=== PATIENT | male | born 1970 | race Caucasian/White ===

== ENCOUNTER 2018-10-12 09:42 | Emergency (ER) | payer MEDICAID ==
[~2018-10-12] VITALS: Ht 170.2 cm; Wt 103.1 kg
[~2018-10-12 09:42] MED LIST: ACET1TAB40 PO; DOCU-144 PO; GLYC1SUP92 PR; LISI10TA2 PO
[2018-10-12 10:02] VITALS: BP 180/95; PULSE 57; RESP 18; Ht 170.2 cm; Wt 103.1 kg
--- NOTE | 2018-10-12 10:31 | ERD ---
ER Documentation Chief Complaint Chief Complaint bilateral knee pain since yesterday HPI 48-year-old male, presents to the emergency department, complaining of bilateral knee pain that has been getting worse during the 3 days. 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 The pain is dull, constant, 8/10. He denies fevers, no chills, no rashes. No medications taken for pain. ROS All systems reviewed and are negative except as per history of present illness. Medications Home Meds Active Scripts Ibuprofen* (Motrin*) 600 Mg Tab, 600 MG PO Q8, #15 TAB Prov:MARY MILES MD 10/12/18 Hydrocodone/Acetaminophen ([place] 5-325 Tablet) 1 Each Tablet, 1 TAB PO BID PRN for PAIN, #10 TAB Prov:MARY MILES MD 10/12/18 Prednisone* (Prednisone*) 20 Mg Tab, 60 MG PO DAILY for 5 Days, TAB Prov:MARY MILES MD 10/12/18 Glycerin* (Glycerin (Adult)*) 1 Each Supp.rect, 1 EACH OH DAILY PRN for CONSTIPATION, #5 SUPP.RECT Prov:FRANCISCA WOODWARD MD 02/27/16 Docusate Sodium* (Colace*) 100 Mg Capsule, 100 MG PO BID PRN for CONSTIPATION, #30 CAP Prov:FRANCISCA WOODWARD MD 02/27/16 Acetaminophen-Codeine* (Acetaminophen-Cod #3*) 300-30 Mg Tab, 1 TAB PO Q4H PRN for PAIN, #30 TAB Prov:BREANNA HEIN DO 08/01/15 Lisinopril* (Lisinopril*) 10 Mg Tablet, 10 MG PO DAILY, #30 TAB Prov:BREANNA HEIN DO 08/01/15 Allergies Allergies: Coded Allergies: No Known Allergy (Unverified , 08/01/15) PMhx/Soc History of Surgery: Yes (APPENDECTOMY) Anesthesia Reaction: No Hx Cardiac Disorders: Yes (HTN?) Hx Psychiatric Problems: No Hx Miscellaneous Medical Probl: Yes (arthritis) Hx Alcohol Use: No Hx Substance Use: No Hx Tobacco Use: No Physical Exam Vitals Vital Signs Date Temp Pulse Resp B/P (MAP) Pulse Ox O2 O2 Flow FiO2 Time Delivery Rate 10/12/18 97.7 57 18 180/95 98 10:02 (123) Physical Exam Const: No acute distress Head: Atraumatic Eyes: Normal Conjunctiva ENT: Normal External Ears, Nose and Mouth. Neck: Full range of motion. No meningismus. Resp: Clear to auscultation bilaterally Cardio: Regular rate and rhythm, no murmurs Abd: Soft, non tender, non distended. Normal bowel sounds Skin: No petechiae or rashes Back: No midline or flank tenderness Ext: Right knee: Normal inspection, mild effusion noticed, full passive range of motion. Distal neurovascular exam intact. Contralateral knee without effusion but diffuse peripatellar tenderness, no erythema, no warmth. Neur: Awake and alert Psych: Normal Mood and Affect Procedures/MDM Acute bilateral knee pain: no red flags. Differential diagnosis include but not limited to: [Knee]contusion, [meniscus injury], tendon/ligament injury, arthritis; low suspicion for fracture, dislocation, septic arthritis. Neurovascular exam grossly intact. no clinical findings suggestive of acute infectious process, no acute deformity, no edema, no rashes. Physical examination and clinical presentation consistent most likely with knee arthritis. During the ED course the patient remained stable. Results and clinical impression discussed with the patient who agrees with management. The patient is stable to be treated outpatient and will be discharged home with recommendations for ice, rest, NSAIDs 3 times daily for 5 days and close monitoring. The patient was instructed to follow up with the primary care provider in the next 48h. If symptoms persist, worsen or new symptoms develop, then patient should return to the ED immediately. Instructions explained and given to patient with acknowledgment and demonstrated understanding. Disclaimer: Inadvertent spelling and grammatical errors are likely due to EHR/dictation software use and do not reflect on the overall quality of patient care. Also, please note that the electronic time recorded on this note does not necessarily reflect the actual time of the patient encounter. Departure Diagnosis: Primary Impression: Arthritis of knee Condition: Stable Additional Instructions: Muchas taryn por [facility] para aaron servicio. Esperamos que en aaron visita a la geo de emergencia aaron problema medico haya sido solucionado y que se sienta mucho mejor. Para estar seguros que aaron mejoria sigue en proceso, le pedimos el favor de hacer dong yousuf de seguimiento medico con aaron doctor primario en los proximos 2-4 kenyon. Lleve con usted estos documentos y las medicinas recetadas. Si bandar sintomas empeoran, NO SE ESPERE, por favor regrese a geo de emergencia INMEDIATAMENTE. En shara que usted no tenga un mdico de atencin primaria: Llame al mdico o clnica comunitaria de referencia que aparece abajo javier las horas de consultorio para hacer dong yousuf para que le vean. CLINICAS: [facility] [phone] [facility] [id number] [facility] [phone] [facility] [id number] [facility] [phone] [id number] [facility] [phone] MARY PALMER MD Oct 12, 2018 10:31
[2018-10-12] MEDS ORDERED: PRED20TA PO (10:46)
[2018-10-12] MEDS ORDERED: HYDR-4011 PO (10:46)
[2018-10-12] MEDS ORDERED: IBUP-1542 PO (10:46)
== END 2018-10-12 11:45 | disposition home or self-care (01) ==
LOC: FTE 09:42
DX: M13.862 Other specified arthritis, left knee (principal); M13.861 Other specified arthritis, right knee; I10 Essential (primary) hypertension
CPT/HCPCS: 99283

== ENCOUNTER 2019-03-09 02:39 | Emergency (ER) | payer SELFPAY ==
[~2019-03-09] VITALS: Ht 172.7 cm; Wt 100.0 kg
[~2019-03-09 02:39] MED LIST changes: +HYDR-4011 PO; +IBUP-1542 PO; +ONDA8TAB14 PO; +PRED20TA PO
[2019-03-09 02:41] VITALS: Ht 172.7 cm; Wt 100.0 kg
[2019-03-09] MEDS ORDERED: ONDANSETRON 4 MG INJ IV STA (02:55)
[2019-03-09] MEDS ORDERED: SOD CHLORIDE 0.9% 1,000 ML IV ONE (03:00)
--- NOTE | 2019-03-09 04:29 | ERD ---
ER Documentation Chief Complaint Chief Complaint VOMITTING X TONIGHT HPI 48-year-old male presents for evulsion of vomiting. Patient states that he has been using marijuana oil, for pain to his knees with chronic arthritis, and bega n having emesis. He denies chest pain or shortness of breath, states that he feels very weak from the vomiting, he does not have abdominal pain, no diarrhea or fever. ROS All systems reviewed and are negative except as per history of present illness. Medications Home Meds Active Scripts Ondansetron (Ondansetron Odt) 8 Mg Tab.rapdis, 8 MG PO Q6H PRN for NAUSEA AND/OR VOMITING, #10 TAB Prov:JEANETH AKHTAR MD 03/09/19 Ibuprofen* (Motrin*) 600 Mg Tab, 600 MG PO Q8, #15 TAB Prov:MARY MILES MD 10/12/18 Hydrocodone/Acetaminophen ([place] 5-325 Tablet) 1 Each Tablet, 1 TAB PO BID PRN for PAIN, #10 TAB Prov:MARY MILES MD 10/12/18 Prednisone* (Prednisone*) 20 Mg Tab, 60 MG PO DAILY for 5 Days, TAB Prov:MARY MILES MD 10/12/18 Glycerin* (Glycerin (Adult)*) 1 Each Supp.rect, 1 EACH HI DAILY PRN for CONSTIPATION, #5 SUPP.RECT Prov:FRANCISCA WOODWARD MD 02/27/16 Docusate Sodium* (Colace*) 100 Mg Capsule, 100 MG PO BID PRN for CONSTIPATION, #30 CAP Prov:FRANCISCA WOODWARD MD 02/27/16 Acetaminophen-Codeine* (Acetaminophen-Cod #3*) 300-30 Mg Tab, 1 TAB PO Q4H PRN for PAIN, #30 TAB Prov:BREANAN HEIN DO 08/01/15 Lisinopril* (Lisinopril*) 10 Mg Tablet, 10 MG PO DAILY, #30 TAB Prov:BREANNA HEIN DO 08/01/15 Allergies Allergies: Coded Allergies: No Known Allergy (Unverified , 08/01/15) PMhx/Soc History of Surgery: Yes (APPENDECTOMY) Anesthesia Reaction: No Hx Cardiac Disorders: Yes (HTN?) Hx Psychiatric Problems: No Hx Miscellaneous Medical Probl: Yes (arthritis) Hx Alcohol Use: No Hx Substance Use: No Hx Tobacco Use: No Smoking Status: Never smoker Physical Exam Vitals Vital Signs Date Temp Pulse Resp B/P (MAP) Pulse Ox O2 O2 Flow FiO2 Time Delivery Rate 03/09/19 97.9 67 20 127/79 100 02:41 (95) Physical Exam Const: Uncomfortable appearing, well-developed well-nourished Head: Atraumatic Eyes: Normal Conjunctiva ENT: Normal External Ears, Nose and Mouth. Neck: Full range of motion. No meningismus. Resp: Clear to auscultation bilaterally Cardio: Regular rate and rhythm, no murmurs Abd: Soft, non tender, non distended, no rebound or guarding. Normal bowel sounds Skin: No petechiae or rashes Back: No midline or flank tenderness Ext: No cyanosis, or edema Neur: Awake and alert Psych: Normal Mood and Affect Result Diagram: 03/09/19 0240 03/09/19 0240 Results 24 hrs Laboratory Tests Test 03/09/19 02:40 03/09/19 02:41 White Blood Count 10.3 10^3/ul Red Blood Count 4.68 10^6/ul Hemoglobin 13.7 g/dl Hematocrit 41.2 % Mean Corpuscular Volume 88.0 fl Mean Corpuscular Hemoglobin 29.3 pg Mean Corpuscular Hemoglobin Concent 33.3 g/dl Red Cell Distribution Width 12.3 % Platelet Count 254 10^3/UL Mean Platelet Volume 10.0 fl Immature Granulocytes % 0.200 % Neutrophils % 26.7 % Lymphocytes % 62.0 % Monocytes % 6.4 % Eosinophils % 4.3 % Basophils % 0.4 % Nucleated Red Blood Cells % 0.0 /100WBC Immature Granulocytes # 0.020 10^3/ul Neutrophils # 2.8 10^3/ul Lymphocytes # 6.4 10^3/ul Monocytes # 0.7 10^3/ul Eosinophils # 0.4 10^3/ul Basophils # 0.0 10^3/ul Nucleated Red Blood Cells # 0.0 10^3/ul Sodium Level 140 mmol/L Potassium Level 3.2 mmol/L Chloride Level 102 mmol/L Carbon Dioxide Level 28 mmol/L Anion Gap 10 Blood Urea Nitrogen 10 mg/dl Creatinine 0.92 mg/dl Est Glomerular Filtrat Rate mL/min > 60 mL/min Glucose Level 149 mg/dl Calcium Level 8.6 mg/dl Total Bilirubin 0.5 mg/dl Direct Bilirubin 0.00 mg/dl Indirect Bilirubin 0.5 mg/dl Aspartate Amino Transf (AST/SGOT) 28 IU/L Alanine Aminotransferase (ALT/SGPT) 27 IU/L Alkaline Phosphatase 90 IU/L Troponin I < 0.012 ng/ml Total Protein 7.0 g/dl Albumin 4.3 g/dl Globulin 2.70 g/dl Albumin/Globulin Ratio 1.59 Lipase 106 U/L Bedside Glucose 149 mg/dL Current Medications Medications Dose Sig/Lisa Start Time Status Last (Trade) Ordered Route PRN Stop Time Admin Dose Reason Admin Ondansetron 4 mg ONCE STAT 03/09/19 DC 03/09/19 HCl (Zofran IV 02:55 03:06 Inj) 03/09/19 02:56 Sodium 1,000 ml @ Q1H ONCE 03/09/19 DC 03/09/19 Chloride 1,000 mls/hr IV 03:00 03:07 03/09/19 03:59 Procedures/MDM 48-year-old male presents for evaluation of nausea and vomiting in the setting of recently using marijuana oils. I suspect this is the most likely etiology of his symptoms, he was evaluated for metabolic derangements, and electrolyte were within normal limits, additionally given his age and male sex, anginal equivalent was considered although less likely, his cardiac work-up was negative, and EKG showed no evidence of ischemia, he experienced improvement in his symptoms, and was reevaluated, and was medically sober, and able to ambulate with a steady gait, he was discharged with family, strict precautions were given for fever abdominal pain, inability to tolerate oral intake or any worsening symptoms at discharge she was in no distress. EKG: Rate/Rhythm: Normal Sinus Rhythm QRS, ST, T-waves: No changes consistent w/ acute ischemia Impression: No evidence of ischemia or arrhythmia Departure Diagnosis: Primary Impression: Vomiting Vomiting type: unspecified Vomiting Intractability: non-intractable Nausea presence: without nausea Qualified Codes: R11.11 - Vomiting without nausea Condition: Stable JEANETH AKHTAR MD Mar 09, 2019 04:29
[2019-03-09 05:20] VITALS: BP 142/72; PULSE 68; RESP 16
== END 2019-03-09 05:20 | disposition home or self-care (01) ==
LOC: E/R 02:39
DX: R11.11 Vomiting without nausea (principal)
CPT/HCPCS: 36415; 80053; 82962; 83690; 84484; 85025; 93005; 96374; 99284; J2405; J7030